=== PATIENT | female | born 2000 | race Native Hawaiian/Other Pacific Islander ===

== ENCOUNTER 2021-06-20 21:15 | Emergency (ER) | payer OTHER ==
[~2021-06-20] VITALS: Ht 160 cm; Wt 105.2 kg
[2021-06-20 21:20] VITALS: BP 130/75; TEMP 98.5
== END 2021-06-20 22:59 | disposition home or self-care (01) ==
LOC: ED 21:15
DX: N91.2 Amenorrhea, unspecified (principal); Z32.02 Encounter for pregnancy test, result negative
CPT/HCPCS: 81000; 81025; 99283